=== PATIENT | female | born 1955 | race Caucasian/White ===

== ENCOUNTER 2019-05-30 16:24 | Emergency (ER) | payer MEDICARE, OTHER ==
[~2019-05-30] VITALS: Ht 170.2 cm; Wt 59.0 kg
== END 2019-05-30 17:55 | disposition home or self-care (01) ==
LOC: ER 16:24
DX: L65.9 Nonscarring hair loss, unspecified (principal); I10 Essential (primary) hypertension; M19.90 Unspecified osteoarthritis, unspecified site; F17.210 Nicotine dependence, cigarettes, uncomplicated
CPT/HCPCS: 99283

== ENCOUNTER 2019-06-12 00:04 | Emergency (ER) | payer MEDICARE, OTHER ==
[~2019-06-12] VITALS: Ht 170.2 cm; Wt 59.0 kg
[2019-06-12] MEDS ORDERED: CENTRUM SILVER1 EAC2 PO (00:15)
[2019-06-12 00:40] LABS: Calcium, Ionized (POC) 1.04 mmol/L (1.10-1.46); Chloride (POC) 93 mmol/L (98-108); Creatinine (POC) 0.9 mg/dL (0.6-1.0); Glucose (ISTAT POC) 114 mg/dL (70-99); Hemoglobin (POC) 12.2 g/dL (12.0-16.0); Potassium (POC) 3.7 mmol/L (3.5-5.5); Sodium (POC) 128 mmol/L (135-148); Total CO2 (POC) 24 mmol/L (21-32)
== END 2019-06-12 00:41 | disposition home or self-care (01) ==
LOC: ER 00:04
DX: M79.661 Pain in right lower leg (principal); M19.90 Unspecified osteoarthritis, unspecified site; I10 Essential (primary) hypertension; F17.200 Nicotine dependence, unspecified, uncomplicated; Z86.73 Personal history of transient ischemic attack (TIA), and cerebral infarction without residual deficits
CPT/HCPCS: 80047; 85014; 99283

== ENCOUNTER 2020-06-21 12:46 | Emergency (ER) | payer MEDICARE, OTHER ==
[~2020-06-21] VITALS: Ht 170.2 cm; Wt 54.4 kg
[~2020-06-21 12:46] MED LIST: CENTRUM SILVER1 EAC2 PO
[2020-06-21 13:35] LABS: Source, Urine Clean Catch
[2020-06-21 13:40] LABS: BASOPHILS ABSOLUTE AUTO 0.07 K/mm3 (0.00-0.23); BASOPHILS PERCENT AUTO 1 % (0-2); Bilirubin, Urine Neg (Neg); Blood, Urine 2+ (Neg); EOSINOPHILS ABSOLUTE AUTO 0.01 K/mm3 (0.00-0.68); EOSINOPHILS PERCENT AUTO 0 % (0-6); Glucose Qualitative, Urine Neg (Neg); Hematocrit 37.6 % (33.0-51.0); Hemoglobin 12.5 g/dL (11.5-16.0); IMMATURE GRAN ABSOLUTE AUTO 0.02 K/mm3 (0.00-0.10); IMMATURE GRAN PERCENT AUTO 0 % (0-1); Ketones, Urine 1+ (Neg); LYMPHOCYTES ABSOLUTE AUTO 0.92 K/mm3 (0.84-5.20); LYMPHOCYTES PERCENT AUTO 15 % (21-46); Leukocyte Esterase, Urine 1+ (Neg); MONOCYTES ABSOLUTE AUTO 0.48 K/mm3 (0.16-1.47); MONOCYTES PERCENT AUTO 8 % (4-13); Mean Corpuscular HGB 26.4 pg (26.0-34.0); Mean Corpuscular HGB Conc 33.2 g/dL (31.5-36.5); Mean Corpuscular Volume 79 fL (80-100); Mean Platelet Volume 9.4 fL (9.1-12.4); NEUTROPHILS ABSOLUTE AUTO 4.55 K/mm3 (1.96-9.15); NEUTROPHILS PERCENT AUTO 75 % (41-73); Nitrite, Urine Pos (Neg); Platelet Count 218 K/mm3 (150-400); Protein, Urine 4+ (Neg); RDW Coefficient Variation 15.2 % (11.7-14.2); RDW Standard Deviation 43.9 fL (35.1-46.3); Red Blood Cell Count 4.74 M/mm3 (3.80-5.20); Specific Gravity, Urine 1.015 (1.003-1.022); Urobilinogen, Urine NORM (Normal); White Blood Cell Count 6.05 K/mm3 (4.00-11.30)
[2020-06-21 13:46] LABS: Appearance, Urine Hazy (Clear); Color, Urine Yellow (P-Yellow)
[2020-06-21 13:47] LABS: Bacteria Many /hpf; Squamous Epithelial Cells Few /hpf (Few)
[2020-06-21 14:01] LABS: Alanine Aminotransfer (ALT/SGP 58 U/L (12-78); Albumin, Blood 3.9 g/dL (3.4-5.0); Albumin/Globulin Ratio 0.8 (0.8-1.8); Alk Phos 110 U/L (50-136); Anion Gap 11 mmol/L (6-16); Aspartate Aminotrans (AST/SGOT 87 U/L (12-37); Bilirubin, Total 0.7 mg/dL (0.1-1.0); Blood Urea Nitrogen 2 mg/dL (8-24); Bun/Creatinine Ratio 4.1 (12.0-20.0); CO2, Blood 25 mmol/L (21-32); Calcium, Blood 8.7 mg/dL (8.5-10.1); Chloride, Blood 88 mmol/L (98-108); Creatinine, Blood 0.49 mg/dL (0.40-1.00); Globulin, Blood 4.6 g/dL (2.2-4.0); Glomerular Filtration Rate >60 (60-); Glucose, Blood 99 mg/dL (70-99); Potassium, Blood 3.8 mmol/L (3.5-5.5); Sodium, Blood 124 mmol/L (136-145); Total Protein, Blood 8.5 g/dL (6.4-8.2)
[2020-06-21] MEDS ORDERED: CEFD300 PO (18:20)
== END 2020-06-21 18:32 | disposition home or self-care (01) ==
LOC: ER 12:46
PROVIDERS: Emergency Medicine
DX: N12 Tubulo-interstitial nephritis, not specified as acute or chronic (principal); E87.1 Hypo-osmolality and hyponatremia; I10 Essential (primary) hypertension; F10.10 Alcohol abuse, uncomplicated; F17.200 Nicotine dependence, unspecified, uncomplicated; Z86.73 Personal history of transient ischemic attack (TIA), and cerebral infarction without residual deficits
CPT/HCPCS: 36415; 71045; 74176; 80053; 81001; 83690; 84484; 85025; 87077; 87086; 87186; 93005; 93010; 96361; 96365; 96375; 99284-25; J0696; J1885; J2405; J7030

== ENCOUNTER 2023-02-11 09:20 | Emergency (ER) | payer MEDICARE, OTHER ==
[~2023-02-11] VITALS: Ht 170.2 cm; Wt 63.5 kg
[~2023-02-11 09:20] MED LIST changes: +CEFD300 PO
[2023-02-11 11:20] VITALS: BP 146/79
[2023-02-11] MEDS ORDERED: Percocet 5-3251 EACH PO (11:49)
== END 2023-02-11 11:56 | disposition home or self-care (01) ==
LOC: ER 09:20
DX: S92.322A Displaced fracture of second metatarsal bone, left foot, initial encounter for closed fracture (principal); W19.XXXA Unspecified fall, initial encounter; M19.90 Unspecified osteoarthritis, unspecified site; I10 Essential (primary) hypertension; F17.200 Nicotine dependence, unspecified, uncomplicated
CPT/HCPCS: 73630; 99283-25

== ENCOUNTER 2025-09-18 09:33 | Inpatient (IN) | payer MEDICARE, OTHER ==
[2025-09-18] VITALS (21 sets, daily range): BP systolic 111–177; BP diastolic 61–80
[~2025-09-18] VITALS: Ht 170.2 cm; Wt 60.5 kg
[~2025-09-18 09:33] MED LIST changes: +Percocet 5-3251 EACH PO
[2025-09-18] MEDS ORDERED: Folic Acid 1 MG TAB PO ONE (10:10)
[2025-09-18] MEDS ORDERED: NS 1,000 ML IV SCH (10:10)
[2025-09-18] MEDS ORDERED: Morphine Sulfate 4 MG/1 ML Injection ONE (10:13)
[2025-09-18] MEDS ORDERED: Morphine Sulfate 4 MG/1 ML Injection IV ONE (10:15)
[2025-09-18 10:25] LABS: Ethanol (Alcohol), Blood, Med <3 mg/dL
[2025-09-18 10:37] LABS: Alanine Aminotransfer (ALT/SGP 65 U/L (12-78); Albumin, Blood 2.7 g/dL (3.4-5.0); Albumin/Globulin Ratio 0.6 (0.8-1.8); Anion Gap 21 mmol/L (3-11); Aspartate Aminotrans (AST/SGOT 277 U/L (12-37); Bilirubin, Total 1.2 mg/dL (0.1-1.0); Blood Urea Nitrogen 19 mg/dL (8-24); CO2, Blood 19 mmol/L (21-32); Calcium, Blood 8.6 mg/dL (8.5-10.1); Chloride, Blood 70 mmol/L (98-108); Creatinine, Blood 0.44 mg/dL (0.40-1.00); Globulin, Blood 4.6 g/dL (2.2-4.0); Glucose, Blood 140 mg/dL (70-99); Potassium, Blood 4.9 mmol/L (3.5-5.5); Sodium, Blood 105 mmol/L (136-145); Total Protein, Blood 7.3 g/dL (6.4-8.2)
[2025-09-18 10:45] LABS: Ethanol (Alcohol), Blood, Med <3 mg/dL; Magnesium, Blood 1.7 mg/dL (1.6-2.4); Phosphorus, Blood 4.4 mg/dL (2.5-4.9)
[2025-09-18 10:46] LABS: Source, Urine Clean Catch
[2025-09-18 10:58] LABS: Bilirubin, Urine Neg (Neg); Color, Urine Yellow (P-Yellow); Glucose Qualitative, Urine Neg (Neg); Ketones, Urine 3+ (Neg); Leukocyte Esterase, Urine 1+ (Neg); Protein, Urine 3+ (Neg); Specific Gravity, Urine 1.020 (1.003-1.022); Urobilinogen, Urine 1+ (Normal)
[2025-09-18 11:00] LABS: Magnesium, Blood 1.8 mg/dL (1.6-2.4); Thyroid Stimulating Hormone 0.491 uIU/mL (0.360-4.800)
[2025-09-18 11:03] LABS: Anion Gap 22.0 mmol/L (3-11); Blood Urea Nitrogen 18.0 mg/dL (8-24); CO2, Blood 19.0 mmol/L (21-32); Calcium, Blood 8.4 mg/dL (8.5-10.1); Chloride, Blood 69.0 mmol/L (98-108); Creatinine, Blood 0.49 mg/dL (0.40-1.00); Glucose, Blood 142.0 mg/dL (70-99); Potassium, Blood 4.9 mmol/L (3.5-5.5); Sodium, Blood 105.0 mmol/L (136-145)
[2025-09-18 11:09] LABS: U Buprenorphine Screen Not Detected; U Cannabinoids Screen DETECTED; U Oxycodone Screen Not Detected
[2025-09-18 11:10] LABS: U Amphetamine Screen Not Detected; U Barbiturate Screen Not Detected; U Benzodiazapine Screen Not Detected; U Cocaine Screen Not Detected; U Methadone Screen Not Detected; U Methamphetamine Screen Not Detected; U Opiates Screen Not Detected; U Phencyclidine Screen Not Detected
[2025-09-18 11:42] LABS: Thyroid Stimulating Hormone 0.488 uIU/mL (0.360-4.800); Uric Acid, Blood 5.9 mg/dL (2.6-6.0)
[2025-09-18 11:54] LABS: Osmolality, Serum 235.0 mos/KG (275-300)
[2025-09-18 12:04] LABS: BASOPHILS ABSOLUTE AUTO 0.14 K/mm3 (0.00-0.23); BASOPHILS PERCENT AUTO 1 % (0-2); EOSINOPHILS ABSOLUTE AUTO 0.01 K/mm3 (0.00-0.68); EOSINOPHILS PERCENT AUTO 0 % (0-6); Hematocrit 39.1 % (33.0-51.0); Hemoglobin 14.5 g/dL (11.5-16.0); IMMATURE GRAN ABSOLUTE AUTO 1.12 K/mm3 (0.00-0.10); IMMATURE GRAN PERCENT AUTO 4 % (0-1); LYMPHOCYTES ABSOLUTE AUTO 0.93 K/mm3 (0.84-5.20); LYMPHOCYTES PERCENT AUTO 3 % (21-46); MONOCYTES ABSOLUTE AUTO 1.55 K/mm3 (0.16-1.47); MONOCYTES PERCENT AUTO 6 % (4-13); Mean Corpuscular HGB Conc 37.1 g/dL (31.5-36.5); Mean Corpuscular Volume 80 fL (80-100); NEUTROPHILS ABSOLUTE AUTO 23.90 K/mm3 (1.96-9.15); NEUTROPHILS PERCENT AUTO 86 % (41-73); NRBC ABSOLUTE 0.00 K/mm3 (0.00-0.02); NRBC Auto 0.0 /100 WBC (0.0-0.2); Platelet Count 429 K/mm3 (150-400); RDW Coefficient Variation 12.1 % (11.7-14.2); RDW Standard Deviation 35.0 fL (35.1-46.3)
[2025-09-18] MEDS ORDERED: FLU VACC TS2025(65UP)/MF59C/PF 45 MCG/0.5 ML SYRINGE IM SCH (12:15)
[2025-09-18 13:12] LABS: Prothrombin Time Results 11.9 Sec (9.7-11.5)
[2025-09-18] MEDS ORDERED: LORazepam 2 MG/ML 1ML Injection IV PRN (13:20)
--- NOTE | 2025-09-18 16:31 | NUR ---
ARRIVAL TO PCU REPORT RECIEVED FROM ER NURSE AT 1300. PT ROUGHLY 1315. PT A/OX3 WITH SOME CONFUSION. PT ROM OF ALL EXTREMITIES LIMITED. PT FOLLOWS SIMPLE COMMANDS OF MOVING FEET AND HANDS, BUT TOO WEAK TO MOVE LEGS AND ARMS. PT WITH WOUNDS SCATTERED T/O. PHOTOS TAKEN AND IN CHART. PT REPORTS PAIN TO HER R HIP, NECK, AND LEFT SHOULDER. PT UNABLE TO RECALL HAVING A FALL. PT WITH HYPERTONIC SOLUTION RUNNING PER ORDER, VERIFIED BY SD ALARCON. SANDY RODRIGUEZ IN PLACE AT TIME OF ARRIVAL, PLACED IN ER. 24 URINE COLLECTION STARTED AT 1315 WHEN PT ARRIVED TO UNIT. 2+ EDEMA NOTED TO BILAT FEET, 1 L FLUID RESTRICTION INITIATED PER NEPHROLOGY.
[2025-09-18 17:14] LABS: Sodium, Blood 109 mmol/L (136-145)
[2025-09-18] MEDS ORDERED: CeFAZolin Sodium 2,000 MG in NS 100 ML IV SCH (18:00)
--- NOTE | 2025-09-18 18:07 | NUR ---
SHIFT SUMMARY PT A/OX3, CONFUSED AT TIMES. PT ABLE TO EXPRESS NEEDS AND USES CALL LIGHT. PT BP'S HAVE IMPROVED SINCE ARRIVING TO UNIT, SEE VITALS. HR REMAINS TACHY. OTHER VSS SINCE ARRIVING TO UNIT.RODRIGUEZ REMAINS IN PLACE DRAINGING TO GRAVITY. [address]
[2025-09-18] MEDS ORDERED: Ketorolac Tromethamine 15mg Vial IV PRN (20:40)
[2025-09-19] VITALS (37 sets, daily range): BP systolic 85–152; BP diastolic 49–108
[2025-09-19 02:17] LABS: Influenza A, PCR NEGATIVE (NEGATIVE); Influenza B, PCR NEGATIVE (NEGATIVE); Resp Syncytial Virus, PCR NEGATIVE (NEGATIVE); SARS-Cov-2 (COVID-19) PCR, MMC NEGATIVE (NEGATIVE)
[2025-09-19 03:15] LABS: Hematocrit 36.2 % (33.0-51.0); Hemoglobin 13.0 g/dL (11.5-16.0)
[2025-09-19 03:43] LABS: Magnesium, Blood 1.7 mg/dL (1.6-2.4)
[2025-09-19 04:01] LABS: Albumin, Blood 2.0 g/dL (3.4-5.0); Anion Gap 14 mmol/L (3-11); Blood Urea Nitrogen 17 mg/dL (8-24); CO2, Blood 21 mmol/L (21-32); Calcium, Blood 8.0 mg/dL (8.5-10.1); Chloride, Blood 82 mmol/L (98-108); Creatinine, Blood 0.42 mg/dL (0.40-1.00); Glucose, Blood 94 mg/dL (70-99); Phosphorus, Blood 3.0 mg/dL (2.5-4.9); Potassium, Blood 4.2 mmol/L (3.5-5.5); Sodium, Blood 113 mmol/L (136-145)
[2025-09-19] MEDS ORDERED: Furosemide 10 MG / ML 2ML Vial IV ONE ×2 (04:55→06:00)
[2025-09-19] MEDS ORDERED: Potassium Chloride 10 Meq Tablet SA PO ONE (04:55)
--- NOTE | 2025-09-19 05:18 | NUR ---
SHIFT SUMMERY PT HAS BEEN ALERT AND ORIENTED X3. SHE HAS BEEN SR/ST ON THE IRONER SOCK. BP WNL. SHE WAS PLACED ON 4LNC TO MAINTAIN OXYGEN SAT >90%. SHE HAS A VERY CONGESTED COUGH W/DIFFICULTY EXPECTORATING. COVID/FLU/RSV NEGATIVE. 3% SALINE DISCONTINUED PER MD ORDERS BEFORE MIDNIGHT. 24 HOUR URINE IN PROGRESS. SHE HAS EXTENSIVE FOUL SMELLING WOUNDS, CLEANED AND DRESSED APPROPRIATE. SHE HAS PROFOUND WEAKNESS/STIFFNESS WELL. BILATERAL PEDAL PULSES ARE INTACT W/ EDEMA NOTED. DR JAQUEZ AWARE. AFEBRILE.
[2025-09-19] MEDS ORDERED: Sodium Bicarb 8.4% Inj 150 MEQ in Dextrose 5% 1,000 ML IV SCH (06:10)
[2025-09-19] MEDS ORDERED: Enoxaparin 40 MG/0.4 ML SYR SC SCH (09:00)
[2025-09-19 11:10] LABS: CO2, Blood 21.0 mmol/L (21-32); Potassium, Blood 3.9 mmol/L (3.5-5.5); Sodium, Blood 117.0 mmol/L (136-145)
--- NOTE | 2025-09-19 13:49 | NUR ---
UPDATE: PT SODIUM INCREASED FROM 113 TO 117, NOTIFIED. ORDERED TO CONTINUE BICARBONATE INFUSION AND 2G SODIUM TABLETS. NA AND K+ DRAW AT 1600, WILL REPORT TO DR JAQUEZ BY 1700. 24-HOUR URINE SAMPLE SENT TO LAB AT APPROX 1325. PT FAMILY AT BEDSIDE, CALL IN REACH.
[2025-09-19 14:26] LABS: Sodium, Urine 19 mmol/L (20-110)
[2025-09-19 16:05] LABS: CO2, Blood 25 mmol/L (21-32); Sodium, Blood 121 mmol/L (136-145)
[2025-09-19] MEDS ORDERED: Potassium Chl 10MEQ/Water100ML 100 ML IV ONE (16:25)
[2025-09-19] MEDS ORDERED: Diltiazem HCl 5 MG / ML 5ML Vial IV ONE (16:45)
--- NOTE | 2025-09-19 17:03 | NUR ---
UPDATE: PT CONVERTED TO AFIB RVR 150-190s AT APPROX 1634 FROM NSR 90s. PT DENYING CHEST PAIN/PRESSURE. A/O X4. EKG OBTAINED. NOTIFIED, ORDERED 10 MG CARDIZEM PUSH. CARDIZEM PUSH GIVEN, PT REMAINED AFIB RVR 140-160s. CARDIZEM GTT ORDERED.
--- NOTE | 2025-09-19 17:50 | NUR ---
UPDATE: PT CONVERTED TO SINUS RHYTHM @1732. VSFiliberto. EMILYT PLACED ON STANDBY.
--- NOTE | 2025-09-19 17:55 | NUR ---
SHIFT SUMMARY: PT ALERT AND ORIENTED X3, ABLE TO FOLLOW COMMANDS AND MAKE NEEDS KNOWN. FORGETFUL AT TIMES, POOR HISTORIAN. BP STABLE. PT CONVERTED TO AFIB RVR THIS EVENING, SEE PREVIOUS NOTE. CONVERTED TO SINUS RHYTHM @1732, BP REMAINS STABLE. LUNG SOUNDS COARSE THROUGHOUT, PT WITH PRODUCTIVE COUGH, SUCTION AT BEDSIDE. SPO2 >92% ON 2-3L NC. RA AT BASELINE. AFEBRILE. PT WITH RODRIGUEZ CATHETER IN PLACE, PATENT AND DRAINING TO GRAVITY. 24 HR URINE COMPLETED @1330. NO BM. PT WITH R. FEMUR FX, SURGEON AT BEDSIDE THIS AM, NO PLANS FOR SURGERY UNTIL MEDICALLY CLEARED. PT WITH EXTENSIVE WOUNDS ON COCCYX AND BUTTOCKS, SEE CHART FOR PICTURES. WOUND CARE COMPLETED THIS AFTERNOON. PT REPOS Q2 TO MAINTAIN SKIN INTEGRITY. FAMILY AT BEDSIDE THIS SHIFT, UPDATED ON PT PLAN OF CARE. PT NOW PCU STATUS. BED IN LOW, CALL LIGHT IN REACH, WILL REPORT TO ONCOMING RN.
[2025-09-19 18:41] LABS: Anti-Xa UFH, PHA Monitoring 0.11 IU/mL; Prothrombin Time Results 10.9 Sec (9.7-11.5)
[2025-09-20] VITALS (9 sets, daily range): BP systolic 113–154; BP diastolic 54–85
--- NOTE | 2025-09-20 03:26 | NUR ---
LATE ENTRY TRANSFER OF CARE PT A&O X3-4, CALM, COOPERATIVE TO CARE. SHE IS ABLE TO MAKE NEEDS KNOW. HR IN THE 70'S, SR. SHE DENIED ANY CP/PRESSURE, NUMB/TINGLING, SBP STABLE. SpO2 >92% ON 4L VIA NC. RODRIGUEZ CATH IN PLACE. PT REPORTED PAIN IN RIGHT HIP THAT COMES AND GOES, MEDICATED PER EMAR. PT TO TRANSFER TO PCU. REPORT GIVEN TO MARTITA ALARCON. PT TRANSFERED TO PCU WITH THIS RN.
[2025-09-20 05:29] LABS: Hematocrit 32.0 % (33.0-51.0); Hemoglobin 11.3 g/dL (11.5-16.0); Mean Corpuscular HGB Conc 35.3 g/dL (31.5-36.5); Mean Corpuscular Volume 83 fL (80-100); NRBC ABSOLUTE 0.00 K/mm3 (0.00-0.02); NRBC Auto 0.0 /100 WBC (0.0-0.2); Platelet Count 335 K/mm3 (150-400); RDW Coefficient Variation 12.9 % (11.7-14.2); RDW Standard Deviation 38.9 fL (35.1-46.3)
[2025-09-20] MEDS ORDERED: Potassium Chloride 10 Meq Tablet SA PO ONE ×2 (05:35→06:10)
[2025-09-20 06:00] LABS: Albumin, Blood 2.0 g/dL (3.4-5.0); Anion Gap 11 mmol/L (3-11); Blood Urea Nitrogen 12 mg/dL (8-24); CO2, Blood 24 mmol/L (21-32); Calcium, Blood 7.7 mg/dL (8.5-10.1); Chloride, Blood 93 mmol/L (98-108); Creatinine, Blood 0.40 mg/dL (0.40-1.00); Glucose, Blood 98 mg/dL (70-99); Magnesium, Blood 1.7 mg/dL (1.6-2.4); Phosphorus, Blood 2.6 mg/dL (2.5-4.9); Potassium, Blood 3.4 mmol/L (3.5-5.5); Sodium, Blood 125 mmol/L (136-145)
--- NOTE | 2025-09-20 06:00 | NUR ---
PT ARRIVED TO PCU 6 FROM ICU. PT AXOX4 AND ABLE TO USE CALL LIGHT APPROPRIATELY. PT CAME OVER ON 3L NC BUT HAD TO BE INCREASED TO 4L ON OPEN OXYMASK DUE TO MOUTH BREATHING. PT HAS PRODUCTIVE COUGH. RODRIGUEZ IN PLACE AND DRAINING TO GRAVITY. WOUNDS NOTED TO LEFT HIP/BUTTOCKS. WOUND CARE PERFORMED AND UPDATED PHOTOS IN CHART. BED IN LOWEST POSITION AND CALL LIGHT WITHIN REACH.
[2025-09-20 07:41] LABS: MYOGLOBIN SERUM 4871 ng/mL (<=58)
[2025-09-20] MEDS ORDERED: Dose Adjust by Pharmacy XX STA ×3 (08:51→23:44)
[2025-09-20] MEDS ORDERED: Heparin Sodium,Porcine/0.5 NS 500 ML IV SCH (08:55)
[2025-09-20] MEDS ORDERED: NS 250 ML IV SCH (10:40)
[2025-09-20 10:54] LABS: Potassium, Blood 3.2 mmol/L (3.5-5.5); Sodium, Blood 126.0 mmol/L (136-145)
[2025-09-20] MEDS ORDERED: Potassium Chloride 10 Meq Tablet SA PO SCH (11:50)
[2025-09-20] MEDS ORDERED: Heparin Sodium 5000 Units/ML 1ML MDV IV ONE (16:45)
--- NOTE | 2025-09-20 18:10 | NUR ---
END OF SHIFT SUMMARY: A&Ox4. PLEASANT AND COOPERATIVE WITH CARE. CALLS APPROPRIATELY AND IS ABLE TO ADVOCATE NEEDS EFFECTIVELY. VSS. TELE STRIP IN CHART REVIEWED AND INTERPRETED SINUS/SINUS TACH. NO AFIB EVENTS TODAY. BREATHING EVEN AND UNLABORED c 4LPM/NC; RA @ BASELINE. CONTINENT OF BOWEL AND BLADDER; RODRIGUEZ FOR STRICT I/Os; DISPLEASED c 1000mL FLUID RESTRICTION AND C/O POLYDIPSIEA. TOLERATING DIET; NEEDS ASSISTANCE c FEEDING D/T LIMITED MOTOR SKILLS IN BUE. BEDREST D/T WEAKNESS/DECONDITIONING AND RIGHT FEMORAL HEAD Fx. EXTENSIVE WOUNDS LLE. SURGICAL CONSULTING. MEDS WHOLE c FLUIDS. HEPARIN GTTs STARTED FOR AFIB. DOSE ADJUSTED x2. SODIUM AND POTASSIUM BEING MONITORED/TREATED BY DR JAQUEZ. CONTINUES c IV ABT. ECHO COMPLETED TODAY; EFT 70%. MEDICATED x2 PRN PAIN. BED IN LOWEST POSITION, CALL LIGHT WITHIN REACH, ALL NEEDS MET. REPORT TO ONCOMING NURSE.
--- NOTE | 2025-09-20 18:45 | NUR ---
CALL TO GISELE WITH LAB RESULTS: HOLD 2100 SODIUM CHLORIDE TABLET THIS EVENING AND RESUME IN THE MORNING. CALL IN MORNING WITH AM LAB RESULTS.
[2025-09-21 04:10] VITALS: BP 139/59
[2025-09-21 05:11] LABS: Hematocrit 32.2 % (33.0-51.0); Hemoglobin 10.7 g/dL (11.5-16.0); Platelet Count 329 K/mm3 (150-400)
[2025-09-21 05:41] LABS: Albumin, Blood 1.8 g/dL (3.4-5.0); Anion Gap 11 mmol/L (3-11); Blood Urea Nitrogen 10 mg/dL (8-24); CO2, Blood 27 mmol/L (21-32); Calcium, Blood 7.5 mg/dL (8.5-10.1); Chloride, Blood 97 mmol/L (98-108); Creatinine, Blood 0.42 mg/dL (0.40-1.00); Glucose, Blood 103 mg/dL (70-99); Magnesium, Blood 1.6 mg/dL (1.6-2.4); Phosphorus, Blood 2.6 mg/dL (2.5-4.9); Potassium, Blood 3.7 mmol/L (3.5-5.5); Sodium, Blood 131 mmol/L (136-145)
[2025-09-21] MEDS ORDERED: Dose Adjust by Pharmacy XX STA (06:00)
--- NOTE | 2025-09-21 06:42 | NUR ---
SHIFT SUMMARY: PT IS A&OX4, PLEASANT AND COOPERATIVE WITH CARE. VSS ON 3-4L OXYGEN VIA NC, SPO2 >95%. SR 80'S-90'S. C/O 8/10 PAIN TO HER LOW BACK, BUTTOCKS, AND LLE, MEDICATED WITH PRN 5MG PO OXYCODONE. TOLERATING A CONSISTENT CARB DIET, ALSO A 1L FLUID RESTRICTION. NO S/S OF ALCOHOL WITHDRAW. NOT OOB THIS SHIFT, REPOSITIONING TOLERATED. RODRIGUEZ CATHETER PATENT, DRAINING ADEQUATE AMOUNTS OF CLEAR, YELLOW URINE TO GRAVITY. SMALL INCONTINENT SMEAR BM THIS SHIFT. PT HAS MODERATE AMOUNTS OF MALODOROUS, SEROSANGUINEOUS DRAINAGE FROM HER LEFT CALF, HER BUTTOCKS AND LEFT HIP AREA. APPLIED A NONADHERENT PAD TO HER CALF. BED IN LOWEST POSITION, CALL LIGHT WITHIN REACH. PT HAS HOLLERED OUT WHEN SHE COULDN'T REACH HER CALL LIGHT, BUT IS ABLE TO ADVOCATE NEEDS EFFECTIVELY.
[2025-09-21] MEDS ORDERED: NS 250 ML IV PRN (06:55)
[2025-09-21 08:57] VITALS: BP 143/91
[2025-09-21 12:03] VITALS: BP 150/68
--- NOTE | 2025-09-21 13:03 | NUR ---
HAD TO LEAVE VOICEMAIL TO GISELE ABOUT NA LEVEL 132. REPLIED BACK TO CONFIRM MESSAGE RECEIVED.
[2025-09-21 16:19] LABS: CK TOTAL 10297 U/L (26-192); CK-BB 0 % (0-0); CK-MACRO TYPE I 0 % (0-0); CK-MACRO TYPE II 0 % (0-0); CK-MB 1 % (0-4); CK-MM 99 % (96-100)
[2025-09-21 16:29] VITALS: BP 143/64
--- NOTE | 2025-09-21 16:59 | NUR ---
ASSUMED CARE AT 1530: PREVIOUS RN SHIFT REPORT REVIEWED AND AGREED WITH UNLESS OTHERWISE CHARTED IN INDIVIDUAL SYSTEM REASSESSMENT CHARTING. PT AOX3, ABLE TO MAKE NEEDS KNOWN. RODIRGUEZ IN PLACE AND DRAINING TO GRAVITY WELL. PT MEDICATED FOR PAIN, SEE EMAR. PT ON 3L O2 MAINTAINING SPO2 ABOVE 92%. CIWA OF 2.
[2025-09-21 20:04] VITALS: BP 146/75
[2025-09-21] MEDS ORDERED: Arginine/Glutamine/Calcium Hmb 1 Packet PO SCH (21:00)
[2025-09-21 23:03] VITALS: BP 138/72
[2025-09-22 03:21] VITALS: BP 156/76
[2025-09-22 03:21] LABS: Hematocrit 31.8 % (33.0-51.0); Hemoglobin 10.5 g/dL (11.5-16.0); Platelet Count 321 K/mm3 (150-400)
[2025-09-22] MEDS ORDERED: Dose Adjust by Pharmacy XX STA (03:36)
[2025-09-22 03:37] LABS: Albumin, Blood 1.7 g/dL (3.4-5.0); Anion Gap 8 mmol/L (3-11); Blood Urea Nitrogen 12 mg/dL (8-24); CO2, Blood 30 mmol/L (21-32); Calcium, Blood 8.0 mg/dL (8.5-10.1); Chloride, Blood 100 mmol/L (98-108); Creatinine, Blood 0.39 mg/dL (0.40-1.00); Glucose, Blood 100 mg/dL (70-99); Magnesium, Blood 1.5 mg/dL (1.6-2.4); Phosphorus, Blood 2.8 mg/dL (2.5-4.9); Potassium, Blood 3.6 mmol/L (3.5-5.5); Sodium, Blood 134 mmol/L (136-145)
[2025-09-22] MEDS ORDERED: Mag Sulfate 1 GM/D5% 100ML 100 ML IV ONE (05:00)
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
[2025-09-22 09:55] VITALS: BP 151/65
[2025-09-22 12:46] VITALS: BP 171/84
[2025-09-22 17:07] VITALS: BP 169/72
--- NOTE | 2025-09-22 18:47 | NUR ---
WOUND CARE PERFORMED PER ORDER. FULL LINE CHANGE DONE. PT TOLERATED WELL.
--- NOTE | 2025-09-22 19:24 | NUR ---
PT STABLE THROUGHOUT SHIFT. PT REMAINS AOX3-4 ON BED REST. PT IS ABLE TO USE CALL LIGHT AND MAKE NEEDS KNOWN. PT REMAINS ON 3L O2 WITH GOOD SPO2. RT HIP PAIN BEING CONTROLLED WITH REPOSITIONING AND PAIN MEDICATION, SEE EMAR. WOUND CARE PERFORMED. CIWA 0. PT ABLE TO SWALLOW PILLS, LIQUIDS WELL. PT TOLERATING MINCED/MOIST DIET BETTER BUT CONTINUES TO NOT HAVE GOOD INTAKE, ONLY TAKE FEW BITES OF FOOD. PT CONTINUES TO BE UNABLE TO MOVE UPPER ARMS WELL BUT DOES HAVE ESSENTIALLY FULL RANGE OF MOTION FROM ELBOW DOWN AND IS ABLE TO FEED HERSELF WITH ASSISTANCE. PT TOLERAING FLUID RESTRICT WELL.
[2025-09-22 20:26] VITALS: BP 167/70
[2025-09-22] MEDS ORDERED: Polyethylene Glycol 3350 17 gm PO SCH (21:00)
[2025-09-23] VITALS (14 sets, daily range): BP systolic 11–178; BP diastolic 47–100
[2025-09-23] MEDS ORDERED: HydrALAZINE HCl 20 MG / ML 1ML Vial IV ONE (04:20)
[2025-09-23 05:04] LABS: Hematocrit 36.9 % (33.0-51.0); Hemoglobin 12.3 g/dL (11.5-16.0); Platelet Count 365 K/mm3 (150-400)
[2025-09-23] MEDS ORDERED: Dose Adjust by Pharmacy XX STA (05:30)
[2025-09-23 06:12] LABS: Albumin, Blood 2.0 g/dL (3.4-5.0); Anion Gap 9 mmol/L (3-11); Blood Urea Nitrogen 12 mg/dL (8-24); CO2, Blood 30 mmol/L (21-32); Calcium, Blood 8.5 mg/dL (8.5-10.1); Chloride, Blood 94 mmol/L (98-108); Creatinine, Blood 0.37 mg/dL (0.40-1.00); Glucose, Blood 103 mg/dL (70-99); Magnesium, Blood 1.5 mg/dL (1.6-2.4); Phosphorus, Blood 2.9 mg/dL (2.5-4.9); Potassium, Blood 3.4 mmol/L (3.5-5.5); Sodium, Blood 130 mmol/L (136-145)
[2025-09-23] MEDS ORDERED: Potassium Chl 20MEQ/Water100ML 100 ML IV ONE (06:30)
[2025-09-23] MEDS ORDERED: Mag Sulfate 1 GM/D5% 100ML 100 ML IV ONE (06:35)
--- NOTE | 2025-09-23 06:40 | NUR ---
SHIFT SUMMARY PT IS ALERT AND OREIENTATED X4 ABLE TO MAKE NEEDS KNOWM USES CALL LIGHT. SHE IS BEDREST WITH Q2 TURNS. WOUND CARE PROVIDED. FREQUENT CHANGES OF LIEN BECAUSE WOUNDS ARE WEEPING. PRN PAIN MEDS GIVEN PER EMAR. HEPARIN STOPPED AT 0600 PER ORDERS. CURRENTLY ICE CHIPS AND WATER ONLY FOR SCOPE TODAY. SHE HAS A PRODUCTIVE COUGH AND IS ABLE TO SUCTION SELF. NO BM THIS SHIFT. RODRIGUEZ CATH IN PLACE, CATH CARE PROVIDED, DRAINING YELLOW URINE TO GRAVITY. PT DENIES NEEDS AT THIS TIME. SHE IS COOPERATIVE WITH CARE AND JOKES WITH STAFF.
--- NOTE | 2025-09-23 07:30 | NUR ---
ASSUMED CARE THIS RN ASSUMED CARE OF PATIENT AT 0700 WITH PRECEPTOR CASIE ALARCON, PATIENT IS ALERT AND ORIENTED X4 DURING BSSR. SHE IS ON 3L O2 VIA OXIMASK WITH SPO2 >96%. SYSTOLIC BP IS >130, HR IS 80-90S. SHE HAS SCATTERED BRUISING, EXCORIATION, AND WOUNDS. VISUALIZED LARGE UNSTAGEABLE PRESSURE INJURIES ACROSS LEFT HIP AND LEG. PATIENT WAS VERY PAINFUL WITH MOVEMENT AND REPOSITION DURING BSSR. SHE HAS RODRIGUEZ PATENT AND DRAINING YELLOW URINE TO GRAVITY. CALL LIGHT IN REACH, BED IN LOWEST POSITION.
[2025-09-23] MEDS ORDERED: Diltiazem HCl 5 MG / ML 5ML Vial IV ONE (08:25)
--- NOTE | 2025-09-23 14:00 | NUR ---
PT TAKEN TO DAY SURGERY AT THIS TIME BY YAMILKA ALARCON
--- NOTE | 2025-09-23 14:50 | NUR ---
PT TO DAY SURGERY FROM PCU 6. Patient confirms NPO status and agrees with scheduled surgery. LUNGS CONGESTED, REPORTED TO ANESTHESIOLOGIST. IV TO RIGHT AC NOT PATENT, LEAKING. REMOVED. NEW IV PLACED TO LEFT HAND. PT AGREEABLE TO SCHEDULED PROCEDURE. RODRIGUEZ PATENT. CARDIZEM DRIP BROUGHT TO DAY SURGERY ON IV POLE AND CONTINUED AT ORDERED RATE.
--- NOTE | 2025-09-23 15:00 | NUR ---
09/23/25 1459 Jessie Goodwin History, Chart, Medications and Allergies reviewed before start of procedure. Bite Block Placed. 3-LEAD EKG REVIEWED WITH PHYSICIAN PRIOR TO START OF PROCEDURE. MONITOR INTACT WITH CONTINUOUS PULSE OXIMETRY, CONTINUOUS END TITAL CO2, 3-LEAD EKG AND INTERMITTENT BLOOD PRESSURE. DR. SIMMONS PROVIDING MAC, SEE ANESTHESIA RECORD.
--- NOTE | 2025-09-23 18:18 | NUR ---
SHIFT SUMMARY PATIENT HAS BEEN ALERT AND ORIENTED X4 THIS SHIFT WITH NO ACUTE EVENTS ASIDE FROM AN EPISODE OF AFIB RVR. SHE HAS BEEN COOPERATIVE WITH TURNS, WOUND CARE, AND MEDICATIONS. SHE IS ON 3LPM O2 VIA NC WITH SPO2 92-96%, SYSTOLIC BP >130, HR 80-90S NSR. PATIENT HAS HAD A GOOD APPETITE AND EATS A MINCED AND MOST DIET WITH ASSISTANCE. SHE HAS A RODRIGUEZ THAT IS PATENT AND DRAINING YELLOW URINE TO GRAVITY. SISTER AND [id number] WAS AT BESIDE TODAY, PLAN TO BE INVOLVED IN HER CARE POST-REHAB AT [facility]. BED IN LOWEST POSITION, CALL LIGHT IN REACH.
--- NOTE | 2025-09-23 21:53 | NUR ---
REPORT WAS GIVEN TO [facility] NURSE AND PT WAS TRANSFERRED TO ROOM 338. ALL BELONGINGS WERE BROUGHT WITH THE PT. PT WAS INFORMED AND WILL INFORM HER FAMULY.
[2025-09-24 03:43] VITALS: BP 140/65
[2025-09-24 06:13] LABS: Hematocrit 34.2 % (33.0-51.0); Hemoglobin 11.0 g/dL (11.5-16.0)
--- NOTE | 2025-09-24 06:31 | NUR ---
Shift Summary Pt transferred from PCU to this unit, she has a fractured L femur which per chart is inoperable. Pt has multiple wounds and excoriations on her bottom and L hip, turned as pt allowed as she did not want to be turned much. Incontinent BM, attends changed and pt cleaned PRN. Dressings changed this AM at 0610. Pt on tele running SR with frequent PVCs, no report from tele monitor of AFIB this shift. Soares catheter in place, patent, soares care provided.
[2025-09-24 06:40] LABS: Albumin, Blood 2.0 g/dL (3.4-5.0); Anion Gap 8 mmol/L (3-11); Blood Urea Nitrogen 12 mg/dL (8-24); CO2, Blood 29 mmol/L (21-32); Calcium, Blood 8.5 mg/dL (8.5-10.1); Chloride, Blood 97 mmol/L (98-108); Creatinine, Blood 0.44 mg/dL (0.40-1.00); Glucose, Blood 101 mg/dL (70-99); Magnesium, Blood 1.6 mg/dL (1.6-2.4); Phosphorus, Blood 3.1 mg/dL (2.5-4.9); Potassium, Blood 3.6 mmol/L (3.5-5.5); Sodium, Blood 130 mmol/L (136-145)
[2025-09-24] MEDS ORDERED: UREA 15 GM POWD.PACK PO SCH (08:00)
[2025-09-24 11:37] VITALS: BP 183/76
[2025-09-24 18:42] VITALS: BP 158/75
--- NOTE | 2025-09-24 18:44 | NUR ---
PATIENT A/OX4, BEDREST AT THIS TIME DUE TO R FEMUR FX AND GENERALIZED WEAKNESS. LUNGS COARSE THROUGHOUT. ASPIRATION PRECAUTIONS, PATIENT TOLERATING MINCED AND MOIST DIET, INTAKE IMPROVING. PAIN MANAGED WITH OXYCODONE. NWB ON RLE, TURNING Q2 HOURS. WOUND CARE DONE THIS SHIFT AND PICS TAKEN AND PLACED ON CHART. PLEASANT AND COOPERATIVE WITH CARE, ABLE TO MAKE NEEDS KNOWN. NO NEW CONCERNS THIS SHIFT.
[2025-09-24 23:32] VITALS: BP 200/89
[2025-09-25 03:17] VITALS: BP 167/104
--- NOTE | 2025-09-25 04:01 | NUR ---
SHIFT SUMMARY PATIENT HAD NO ACUTE CHANGES. ALERT ORIENTED AND BEDREST WITH RIGHT FEMUR FX. DENIES CHEST PAIN, SOB, AND N/V. PIVS INTACT. IV ABX INFUSED. RODRIGUEZ PATENT AND DRAINING TO GRAVITY. TELE MONITOR NSR 94. REPORTED RIGHT LEG PAIN AND OXYCODONE 10 MG GIVEN PER EMAR. HYPERTENSIVE BEFORE PAIN MEDICATION GIVEN. CALL LIGHT IN REACH. BED IN LOWEST POSITION. WILL CONTINUE TO MONITOR UNTIL DAY SHIFT NURSE ASSUMES CARE.
[2025-09-25 06:08] LABS: Hematocrit 33.3 % (33.0-51.0); Hemoglobin 11.0 g/dL (11.5-16.0)
[2025-09-25 06:31] LABS: Albumin, Blood 2.0 g/dL (3.4-5.0); Anion Gap 9 mmol/L (3-11); Blood Urea Nitrogen 10 mg/dL (8-24); CO2, Blood 27 mmol/L (21-32); Calcium, Blood 8.4 mg/dL (8.5-10.1); Chloride, Blood 98 mmol/L (98-108); Creatinine, Blood 0.40 mg/dL (0.40-1.00); Glucose, Blood 101 mg/dL (70-99); Magnesium, Blood 1.4 mg/dL (1.6-2.4); Phosphorus, Blood 3.5 mg/dL (2.5-4.9); Potassium, Blood 4.0 mmol/L (3.5-5.5); Sodium, Blood 130 mmol/L (136-145)
[2025-09-25 07:24] VITALS: BP 148/78
[2025-09-25] MEDS ORDERED: Magnesium Sulf 2 GM/Water 50ML 50 ML IV ONE (07:50)
--- NOTE | 2025-09-25 07:58 | NUR ---
CALLED DR JAQUEZ FOR FLUID RESTRICTION CLARIFICATION ORDER. PER DR JAQUEZ 1L FLUID RESTRICTION ON ALL FLUIDS.
[2025-09-25] MEDS ORDERED: UREA 15 GM POWD.PACK PO SCH (09:00)
[2025-09-25 10:14] LABS: GASTRIN 68 pg/mL (0-100)
[2025-09-25] MEDS ORDERED: ELIQUIS5 M2 PO (11:36)
[2025-09-25] MEDS ORDERED: OMEP20ER PO (11:37)
[2025-09-25] MEDS ORDERED: CEPH500 PO (11:37)
[2025-09-25] MEDS ORDERED: METO50ER PO (11:37)
[2025-09-25] MEDS ORDERED: OXAYDO5 M1 PO (11:38)
[2025-09-25] MEDS ORDERED: SODCHL1 PO (11:39)
[2025-09-25] MEDS ORDERED: URE-NA PO (11:44)
--- NOTE | 2025-09-25 15:48 | NUR ---
DISCHARGE NOTE: PT ALERT AND ORIENTED X4, VSS. TRANSFER FROM HOSPITAL BED TO STRETCHER FOR EMS TRANSFER TO [facility]. FULL REPORT CALLED GIVEN TO JOSE JOHANSEN ALL QUESTIONS ANSWERED. DC FOLDER GIVEN TO TRANSPORT PERSONNEL TO GIVE TO STAFF AT RECIEVING [facility]. ALL BELONGINGS WITH PATIENT. PICTURES OF ALL WOUNDS TAKEN PER PROTOCOL BEFORE DISCHARGE AND WOUND CARE COMPLETED AND NEW DRESSINGS APPLIED PER WOUND CARE ORDERS. [facility] CALLED A SECOND TIME FOR UPDATE ON WOUNDS PRESENT AND WOUND CARE PROVIDED BEFORE PT'S DISCHARGE- UPDATE GIVEN TO JOSE JOHANSEN.
== END 2025-09-25 15:46 | DRG 640 ==
LOC: ER 09:33 → MEDS 12:13 → PCU 12:13 → ICUE 12:13 → PCU 09-20 00:38 → MEDS 09-23 21:45 → ENPENDDIS 09-25 10:49 → MEDS 09-25 15:46
PROVIDERS: Emergency Medicine; Internal Medicine; Internal Medicine Gastroenterology; Internal Medicine Nephrology; ADMIT Internal Medicine
PROC: 3E03329 Introduction of Other Anti-infective into Peripheral Vein, Percutaneous Approach (ICD-10-PCS; 2025-09-23)
PROC: 0DB68ZX Excision of Stomach, Via Natural or Artificial Opening Endoscopic, Diagnostic (ICD-10-PCS; principal; 2025-09-23 14:30)
DX: E87.1 Hypo-osmolality and hyponatremia (principal); S72.001A Fracture of unspecified part of neck of right femur, initial encounter for closed fracture; L03.317 Cellulitis of buttock; M62.82 Rhabdomyolysis; K22.10 Ulcer of esophagus without bleeding; E44.0 Moderate protein-calorie malnutrition; K25.9 Gastric ulcer, unspecified as acute or chronic, without hemorrhage or perforation; K26.9 Duodenal ulcer, unspecified as acute or chronic, without hemorrhage or perforation; L89.152 Pressure ulcer of sacral region, stage 2; I10 Essential (primary) hypertension; M19.90 Unspecified osteoarthritis, unspecified site; F17.210 Nicotine dependence, cigarettes, uncomplicated; F12.90 Cannabis use, unspecified, uncomplicated; E86.0 Dehydration; E87.20 Acidosis, unspecified; R00.0 Tachycardia, unspecified; F10.20 Alcohol dependence, uncomplicated; R29.6 Repeated falls; L89.329 Pressure ulcer of left buttock, unspecified stage; E87.70 Fluid overload, unspecified; R80.9 Proteinuria, unspecified; R31.29 Other microscopic hematuria; K59.09 Other constipation; I48.0 Paroxysmal atrial fibrillation; E87.6 Hypokalemia; E83.39 Other disorders of phosphorus metabolism; D64.9 Anemia, unspecified; E88.09 Other disorders of plasma-protein metabolism, not elsewhere classified; Z68.20 Body mass index [BMI] 20.0-20.9, adult; Z86.73 Personal history of transient ischemic attack (TIA), and cerebral infarction without residual deficits; Z79.899 Other long term (current) drug therapy
CPT/HCPCS: 36415; 51702; 70450; 71045; 72125; 73030; 73502; 74177; 80048; 80053; 80069; 80320; 81001; 82374; 82533; 82550; 82552; 82607; 82941; 82947; 83735; 83874; 83930; 84100; 84132; 84295; 84300; 84439; 84443; 84550; 85014; 85018; 85025; 85027; 85049; 85520; 85610; 85730; 87637; 88305; 88342; 93005; 93010; 93306; 94762; 96374-59; 97110; 97162; 97166; 97530; 97535; 99285-25; A9270; J0360; J0690; J1644; J1650; J1938; J2270; J2704; J3411; J3475; J3480; J7030; J7050; J7070; J7120; Q9967